=== PATIENT | female | born 1985 | race African-American/Black ===

== ENCOUNTER 2016-12-05 18:05 | Emergency (ER) | payer MEDICAID ==
[~2016-12-05] VITALS: Ht 167.6 cm; Wt 93.4 kg
[2016-12-05 18:10] VITALS: BP 149/88
--- NOTE | 2016-12-05 18:17 | ED.ADGEN ---
Past History Past Medical History: Anxiety Past Surgical History: Smoking: Non-smoker Adult General Chief Complaint Chief Complaint " I worried maybe .. I am ... and or a urinary tract infection.. just kar achy.. and fevers the last 10 days.." HPI HPI Patient is a 31 year old female who presents with above hx and complaints of fevers. Patient very concerned she may be . Patient has complaints of dysuria. Patient has complaints of dysfunctional uterine bleeding for the last couple months. She has complaints of intermittent tension headaches. No history of travel. No history of ill contacts. No history of immunosuppression.- Denies drug use. Patient normally follows with Dr. Cardona. Review of Systems Review of Systems Constitutional: Denies fever or chills [] Eyes: Denies change in visual acuity, redness, or eye pain [] HENT: Denies nasal congestion or sore throat [] Respiratory: Denies cough or shortness of breath [] Cardiovascular: No additional information not addressed in HPI [] GI: Denies abdominal pain, nausea, vomiting, bloody stools or diarrhea [] : Complaints of dysuria Musculoskeletal: Denies back pain or joint pain [] Integument: Denies rash or skin lesions [] Neurologic: Denies headache, focal weakness or sensory changes [] Endocrine: Denies polyuria or polydipsia [] Family History Family History Noncontributory Current Medications Current Medications Current Medications Medications (Trade) Dose Ordered Sig/Toro Start Time Stop Time Status Last Admin Dose Admin Trimethoprim/ Sulfamethoxazole (Bactrim Ds) 1 tab 1X ONCE 12/05/16 20:45 12/05/16 20:52 DC 12/05/16 20:45 1 TAB Allergies Allergies Allergies Coded Allergies Type Severity Reaction Last Updated Verified No Known Drug Allergies 08/20/13 No Physical Exam Physical Exam Constitutional: Mild distress, non-toxic appearance. [] HENT: Normocephalic, atraumatic, bilateral external ears normal, oropharynx moist, no oral exudates, nose normal. [] Eyes: PERRLA, EOMI, conjunctiva normal, no discharge. [] Neck: Normal range of motion, no tenderness, supple, no stridor. [] Cardiovascular:Heart rate regular rhythm, no murmur [] Lungs & Thorax: Bilateral breath sounds equal at apexes auscultation [] Abdomen: Bowel sounds normal, soft, no tenderness, no masses, no pulsatile masses. [] Patient declines rectal exam or pelvic exam at this time. No true rebound. Old surgery scar Skin: Warm, dry, no erythema, no rash. [] Back: No tenderness, no CVA tenderness. [] Extremities: No tenderness, no cyanosis, no clubbing, ROM intact, no edema. [] Neurologic: Alert and oriented X 3, normal motor function, normal sensory function, no focal deficits noted. No psoas or obturator sign Psychologic: Affect anxious, judgement normal, mood normal. [] Current Patient Data Vital Signs Vital Signs Date Time Temp Pulse Resp B/P Pulse Ox O2 Delivery O2 Flow Rate FiO2 12/05/16 18:10 98.5 110 16 98 Room Air Lab Results Laboratory Tests Test 12/05/16 19:00 Urine Collection Type Unknown Urine Color Yellow Urine Clarity Cloudy Urine pH 7.5 Urine Specific [place] 1.020 Urine Protein Neg (NEG-TRACE) Urine Glucose (UA) Negmg/dL (NEG) Urine Ketones (Stick) Negmg/dL (NEG) Urine Blood Trace (NEG) Urine Nitrite Pos (NEG) Urine Bilirubin Neg (NEG) Urine Urobilinogen Dipstick 0.2mg/dL (0.2 mg/dL) Urine Leukocyte Esterase Neg (NEG) Urine RBC Occ/HPF (0-2) Urine WBC 5-10/HPF (0-4) Urine Squamous Epithelial Cells Occ/LPF Urine Amorphous Sediment Present/HPF Urine Bacteria Mod/HPF (0-FEW) Urine Mucus Slight/LPF Influenza Type A (Rapid) Negative (NEGATIVE) Influenza Type B (Rapid) Negative (NEGATIVE) EKG EKG [] Radiology/Procedures Radiology/Procedures [] Course & Med Decision Making Course & Med Decision Making Pertinent Labs and Imaging studies reviewed. (See chart for details) Patient encouraged follow-up primary care. Patient encouraged to push fruit juices and vitamin C drinks. Patient take Bactrim DS 1 tablet twice a day for 7 days. Patient encouraged follow-up lab results. Patient return if any concerns. Patient may take Tylenol and ibuprofen for discomfort. [] Final Impression Final Impression 1. Myalgia[] 2. Dysuria- UTI 3. Hx of history of dysfunctional uterine bleeding. Problems: Dragon Disclaimer Dragon Disclaimer This electronic medical record was generated, in whole or in part, using a voice recognition dictation system. DUTCH RAE MD Dec 05, 2016 18:17
[2016-12-05 19:55] LABS: INFLUENZA A PATIENT NEGATIVE (NEGATIVE); INFLUENZA B PATIENT NEGATIVE (NEGATIVE)
[2016-12-05 20:08] LABS: AMORPHOUS SEDIMENT,UR PRESENT /HPF; BACTERIA,URINE MOD /HPF (0-FEW); BILIRUBIN,URINE NEG (NEG); CLARITY,URINE CLOUDY; COLOR,URINE YELLOW; GLUCOSE,URINE NEG (NEG); NITRITE,URINE POS (NEG); RBC,URINE OCC /HPF (0-2); SQUAMOUS EPITHELIAL CELL,UR OCC /LPF; UROBILINOGEN,URINE 0.2 mg/dL (0.2 mg/dL)
[2016-12-05] MEDS ORDERED: SMZ/TMP 800/160MG TABLET. PO ONE (20:45)
[2016-12-05] MEDS ORDERED: HYDR-79 PO (20:46)
[2016-12-05] MEDS ORDERED: SULF1TAB24 PO (20:46)
== END 2016-12-05 20:56 | disposition home or self-care (01) ==
LOC: ER 18:05
DX: N39.0 Urinary tract infection, site not specified (principal); M79.1 Myalgia; R51 Headache; R50.9 Fever, unspecified
CPT/HCPCS: 81001; 81025; 84703; 87804; 99284

== ENCOUNTER 2017-01-09 04:55 | Emergency (ER) | payer MEDICAID ==
[~2017-01-09 04:55] MED LIST: HYDR-79 PO; SULF1TAB24 PO
--- NOTE | 2017-01-09 04:58 | ED.ADGEN ---
Past History Past Medical History: No Pertinent History Past Surgical History: Smoking: Non-smoker Alcohol Use: Occasionally Drug Use: None Adult General Chief Complaint Chief Complaint ".. I was just siting at the desk at work.. and it seemed like my chest pressure was worse.. I ve had constant chest pressure for past two week.s... and this Lt. arm pain for 3 weeks. ... It just that it seems worse for the last two hours.... I am just worried since my sister had two heart attacks at 34..." But My sister did drink a lot.. and smoked too much before she had her two MT when she was 34....." HPI HPI Patient is a 31 year old female who presents with history of constant central chest pain for the past 2 weeks. Left Arm pain has been controlled or ache type pain has been constant the past 3 weeks. Patient does not smoke. Patient denies drug use. Patient denies prior health problems. Patient denies any trauma. Patient denies any travel. Patient denies any history of DVTs or pulmonary embolisms. Patient denies any use of control. Patient is exposed to sick individuals at the [place] residential housing. Patient does have a positive family history of coronary disease at age 34 with her sister who has a history of Raynaud's syndrome with heavy tobacco and alcohol use. Pt. has had increased family and social stressors recently and complaints of increased anxiety episodes. Review of Systems Review of Systems Constitutional: Denies fever or chills [] Eyes: Denies change in visual acuity, redness, or eye pain [] HENT: Denies nasal congestion or sore throat [] Respiratory: Denies cough , complains of shortness of breath and chest pressure Cardiovascular: No additional information not addressed in HPI [] GI: Denies abdominal pain, nausea, vomiting, bloody stools or diarrhea [] : Denies dysuria or hematuria [] Musculoskeletal: Denies back pain or joint pain []Lt arm pain Integument: Denies rash or skin lesions [] Neurologic: Denies headache, focal weakness or sensory changes [] Endocrine: Denies polyuria or polydipsia [] Family History Family History Early cardiac disease with her sister age 34 Current Medications Current Medications Current Medications Medications (Trade) Dose Ordered Sig/Toro Start Time Stop Time Status Last Admin Dose Admin Aspirin 324 mg 324 mg 1X ONCE 01/09/17 06:00 01/09/17 06:13 DC 01/09/17 06:28 324 MG Lactated Ringer's (Iv Lactated Ringers) 1,000 ml @ 1,000 mls/hr Q1H 01/09/17 06:00 01/09/17 07:22 DC 01/09/17 06:28 1,000 MLS/HR Lorazepam (Ativan) 1 mg 1X ONCE 01/09/17 06:15 01/09/17 06:16 DC 01/09/17 06:28 1 MG Allergies Allergies Allergies Coded Allergies Type Severity Reaction Last Updated Verified No Known Drug Allergies 08/20/13 No Physical Exam Physical Exam Constitutional: in acute emotional distress, non-toxic appearance, tearful. . [] HENT: Normocephalic, atraumatic, bilateral external ears normal, oropharynx moist, no oral exudates, nose normal. [] Eyes: PERRLA, EOMI, conjunctiva normal, no discharge. [] Neck: Normal range of motion, no tenderness, supple, no stridor. [] Cardiovascular:Heart rate regular rhythm, no murmur [] Lungs & Thorax: Bilateral breath sounds clear to auscultation [] Abdomen: Bowel sounds normal, soft, no tenderness, no masses, no pulsatile masses. [] Old surgical scar. Declines rectal exam at this time. Skin: Warm, dry, no erythema, no rash. [] Back: No tenderness, no CVA tenderness. [] Extremities: No tenderness, no cyanosis, no clubbing, ROM intact, no edema. No cording noted. Neurologic: Alert and oriented X 3, normal motor function, normal sensory function, no focal deficits noted. [] Psychologic: Affect very anxious, judgement normal, mood depressed. Current Patient Data Vital Signs Vital Signs Date Time Temp Pulse Resp B/P Pulse Ox O2 Delivery O2 Flow Rate FiO2 01/09/17 05:05 98.0 82 20 100 Room Air Lab Results Laboratory Tests Test 01/09/17 05:10 01/09/17 05:50 Urine Collection Type Unknown Urine Color Yellow Urine Clarity Clear Urine pH 6.0 Urine Specific [place] 1.020 Urine Protein Neg (NEG-TRACE) Urine Glucose (UA) Negmg/dL (NEG) Urine Ketones (Stick) Negmg/dL (NEG) Urine Blood Neg (NEG) Urine Nitrite Neg (NEG) Urine Bilirubin Neg (NEG) Urine Urobilinogen Dipstick 0.2mg/dL (0.2 mg/dL) Urine Leukocyte Esterase Neg (NEG) Urine RBC 3-5/HPF (0-2) Urine WBC 0/HPF (0-4) Urine Squamous Epithelial Cells Few/LPF Urine Bacteria 0/HPF (0-FEW) Urine Mucus Slight/LPF Urine Opiates Screen Neg (NEG) Urine Methadone Screen Neg (NEG) Urine Barbiturates Neg (NEG) Urine Phencyclidine Screen Neg (NEG) Urine Amphetamine/Methamphetamine Neg (NEG) Urine Benzodiazepines Screen Neg (NEG) Urine Cocaine Screen Neg (NEG) Urine Cannabinoids Screen Neg (NEG) Urine Ethyl Alcohol Neg (NEG) White Blood Count 8.1x10^3/uL (4.0-11.0) Red Blood Count 3.84x10^6/uL (3.50-5.40) Hemoglobin 11.6g/dL (12.0-15.5) L Hematocrit 35.4% (36.0-47.0) L Mean Corpuscular Volume 92fL (79-100) Mean Corpuscular Hemoglobin 30pg (25-35) Mean Corpuscular Hemoglobin Concent 33g/dL (31-37) Red Cell Distribution Width 14.3% (11.5-14.5) Platelet Count 331x10^3/uL (140-400) Neutrophils (%) (Auto) 55% (31-73) Lymphocytes (%) (Auto) 34% (24-48) Monocytes (%) (Auto) 8% (0-9) Eosinophils (%) (Auto) 2% (0-3) Basophils (%) (Auto) 2% (0-3) Neutrophils # (Auto) 4.5x10^3uL (1.8-7.7) Lymphocytes # (Auto) 2.7x10^3/uL (1.0-4.8) Monocytes # (Auto) 0.6x10^3/uL (0.0-1.1) Eosinophils # (Auto) 0.1x10^3/uL (0.0-0.7) Basophils # (Auto) 0.1x10^3/uL (0.0-0.2) Prothrombin Time 10.4SEC (9.4-11.4) Prothrombin Time INR 1.0 (0.9-1.1) PTT 26SEC (23-33) D-Dimer (Nola) 0.22mg/L (0.00-0.50) POC Urine HCG, Qualitative hcg negative (Negative) Sodium Level 138mmol/L (136-145) Potassium Level 3.9mmol/L (3.5-5.1) Chloride Level 103mmol/L (98-107) Carbon Dioxide Level 27mmol/L (21-32) Anion Gap 8 (6-14) Blood Urea Nitrogen 9mg/dL (7-20) Creatinine 1.0mg/dL (0.6-1.0) Estimated GFR (Cockcroft-Gault) 79.3 Glucose Level 99mg/dL (70-99) Calcium Level 8.9mg/dL (8.5-10.1) Magnesium Level 1.8mg/dL (1.8-2.4) Total Bilirubin 0.3mg/dL (0.2-1.0) Direct Bilirubin 0.1mg/dL (0.0-0.2) Aspartate Amino Transferase (AST) 12U/L (15-37) L Alanine Aminotransferase (ALT) 19U/L (14-59) Alkaline Phosphatase 65U/L (46-116) Creatine Kinase 151U/L (26-192) Creatine Kinase MB (Mass) 0.9ng/mL (0.0-3.6) Creatine Kinase MB Relative Index 0.6% (0-4) Troponin I Quantitative < 0.017ng/mL (0-0.055) RC-[id number]-Type Natriuretic Peptide 11pg/mL (0-124) Total Protein 7.9g/dL (6.4-8.2) Albumin 3.6g/dL (3.4-5.0) Lipase 98U/L (73-393) EKG EKG My interpretation EKG shows a sinus rhythm at 63 bpm. No findings acute STEMI . Essentially normal EKG [] Radiology/Procedures Radiology/Procedures My interpretation of chest x-ray shows no acute cardiopulmonary findings. Does have findings of mild scoliosis .[] Course & Med Decision Making Course & Med Decision Making Pertinent Labs and Imaging studies reviewed. (See chart for details). Discussed presentation, testing and tx. plan with Pt. She wished to be discharged. Must follow up with primary. Take a daily ASA. Return if any concerns. [] Final Impression Final Impression 1. Chest discomfort 2. Anxiety []- 3. Anemia Problems: Dragon Disclaimer Dragon Disclaimer This electronic medical record was generated, in whole or in part, using a voice recognition dictation system. DUTCH RAE MD Jan 09, 2017 04:58
[2017-01-09 05:05] VITALS: BP 130/95
[2017-01-09] MEDS ORDERED: ASPIRIN 81 MG TAB.CHEW PO ONE (06:00)
[2017-01-09] MEDS ORDERED: IV RINGERS SOLUTION,LACTATED 1,000 ML IV SCH (06:00)
[2017-01-09 06:12] LABS: BASO # 0.1 x10^3/uL (0.0-0.2); BASO % 2 % (0-3); EOS # 0.1 x10^3/uL (0.0-0.7); EOS % 2 % (0-3); HEMATOCRIT 35.4 % (36.0-47.0); HEMOGLOBIN 11.6 g/dL (12.0-15.5); LYMPH # 2.7 x10^3/uL (1.0-4.8); LYMPH % 34 % (24-48); MEAN CORPUSCULAR HEMOGLOBIN 30 pg (25-35); MEAN CORPUSCULAR HGB CONC 33 g/dL (31-37); MEAN CORPUSCULAR VOLUME 92 fL (79-100); MONO # 0.6 x10^3/uL (0.0-1.1); MONO % 8 % (0-9); NEUT # 4.5 x10^3uL (1.8-7.7); NEUT % 55 % (31-73); PLATELET COUNT 331 x10^3/uL (140-400); RED BLOOD COUNT 3.84 x10^6/uL (3.50-5.40); RED CELL DISTRIBUTION WIDTH 14.3 % (11.5-14.5); WHITE BLOOD COUNT 8.1 x10^3/uL (4.0-11.0)
[2017-01-09 06:13] LABS: BARBITURATES NEG (NEG); BENZODIAZEPINES NEG (NEG); CANNABINOIDS NEG (NEG); COCAINE NEG (NEG); METHADONE NEG (NEG); OPIATES NEG (NEG); PHENCYCLIDINE NEG (NEG)
[2017-01-09 06:14] LABS: AMPHETAMINE/METHAMPHETAMINE NEG (NEG)
[2017-01-09] MEDS ORDERED: LORAZEPAM 1 MG TABLET. PO ONE (06:15)
[2017-01-09 06:18] LABS: BACTERIA,URINE 0 /HPF (0-FEW); BILIRUBIN,URINE NEG (NEG); CLARITY,URINE CLEAR; COLOR,URINE YELLOW; GLUCOSE,URINE NEG (NEG); NITRITE,URINE NEG (NEG); SQUAMOUS EPITHELIAL CELL,UR FEW /LPF; UROBILINOGEN,URINE 0.2 mg/dL (0.2 mg/dL); WBC,URINE 0 /HPF (0-4)
--- NOTE | 2017-01-09 06:26 | EKG ---
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
[2017-01-09 06:31] LABS: ALBUMIN 3.6 g/dL (3.4-5.0); CALCIUM 8.9 mg/dL (8.5-10.1); DIRECT BILIRUBIN 0.1 mg/dL (0.0-0.2); GFR 79.3; MAGNESIUM 1.8 mg/dL (1.8-2.4); POTASSIUM 3.9 mmol/L (3.5-5.1); TOTAL BILIRUBIN 0.3 mg/dL (0.2-1.0); TOTAL PROTEIN 7.9 g/dL (6.4-8.2)
--- NOTE | 2017-01-09 08:10 | RAD ---
PA and lateral chest radiographs 01/09/2017. Clinical History: Chest pain which raise down the left arm.. PA and lateral digital radiographs of the chest were obtained. Comparison study is dated 07/12/2013. The cardiac and mediastinal silhouettes are within normal limits in size and configuration. No pulmonary infiltrate is seen. No pleural effusion or pneumothorax is noted. Mild to moderate S-shaped curvature of the thoracolumbar spine is noted. Impression: No radiographic evidence of active cardiopulmonary disease.
== END 2017-01-09 07:20 | disposition home or self-care (01) ==
LOC: ER 04:55
DX: R07.89 Other chest pain (principal); M79.602 Pain in left arm; F41.9 Anxiety disorder, unspecified; D64.9 Anemia, unspecified
CPT/HCPCS: 36415; 71020; 80048; 80076; 80305; 81001; 82553; 83690; 83735; 83880; 84443; 84484; 84703; 85027; 85379; 85610; 85730; 93005; 96360; 99285; J7120; 81025; G0481

== ENCOUNTER 2019-07-06 00:04 | Inpatient (IN) | payer MEDICAID, OTHER ==
[~2019-07-06] VITALS: Ht 167.6 cm; Wt 100.9 kg
[~2019-07-06 00:04] MED LIST changes: +HYDR-1179 PO; -HYDR-79 PO
[2019-07-06] MEDS ORDERED: IV NORMAL SALINE 1,000ML 1,000 ML IV ONE (00:30)
[2019-07-06] MEDS ORDERED: FAMOTIDINE 20 MG/2 ML VIAL IVP ONE (00:30)
[2019-07-06] MEDS ORDERED: KETOROLAC 15 MG/ML VIAL. IVP ONE (00:30)
[2019-07-06 01:04] LABS: BASO # 0.1 x10^3/uL (0.0-0.2); BASO % 1 % (0-3); EOS # 0.2 x10^3/uL (0.0-0.7); EOS % 3 % (0-3); HEMATOCRIT 35.3 % (36.0-47.0); HEMOGLOBIN 11.9 g/dL (12.0-15.5); LYMPH # 2.8 x10^3/uL (1.0-4.8); LYMPH % 35 % (24-48); MEAN CORPUSCULAR HEMOGLOBIN 33 pg (25-35); MEAN CORPUSCULAR HGB CONC 34 g/dL (31-37); MEAN CORPUSCULAR VOLUME 96 fL (79-100); MONO # 0.6 x10^3/uL (0.0-1.1); MONO % 7 % (0-9); NEUT # 4.4 x10^3uL (1.8-7.7); NEUT % 54 % (31-73); PLATELET COUNT 284 x10^3/uL (140-400); RED BLOOD COUNT 3.67 x10^6/uL (3.50-5.40); RED CELL DISTRIBUTION WIDTH 12.7 % (11.5-14.5); WHITE BLOOD COUNT 8.2 x10^3/uL (4.0-11.0)
[2019-07-06 01:13] LABS: BILIRUBIN,URINE NEG (NEG); CLARITY,URINE HAZY; COLOR,URINE YELLOW; GLUCOSE,URINE NEG (NEG)
[2019-07-06 01:14] LABS: BACTERIA,URINE MANY /HPF (0-FEW); NITRITE,URINE NEG (NEG); RBC,URINE OCC /HPF (0-2); SQUAMOUS EPITHELIAL CELL,UR FEW /LPF; UROBILINOGEN,URINE 0.2 mg/dL (0.2 mg/dL)
[2019-07-06 01:19] LABS: ALBUMIN 3.7 g/dL (3.4-5.0); ALBUMIN/GLOBULIN RATIO 0.9 (1.0-1.7); CALCIUM 8.7 mg/dL (8.5-10.1); CREATININE 0.9 mg/dL (0.6-1.0); GFR 87.8; MAGNESIUM 1.8 mg/dL (1.8-2.4); POTASSIUM 3.9 mmol/L (3.5-5.1); TOTAL BILIRUBIN 0.2 mg/dL (0.2-1.0); TOTAL PROTEIN 7.9 g/dL (6.4-8.2)
--- NOTE | 2019-07-06 01:53 | EKG ---
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
[2019-07-06] MEDS ORDERED: CONTRAST GIVEN MC PRN (02:15)
[2019-07-06] MEDS ORDERED: IOHEXOL 350 MG/ML 100 ML VIAL. IV ONE (02:15)
--- NOTE | 2019-07-06 02:42 | PHYS DOC ---
Past History Past Medical History: No Pertinent History Past Surgical History: Smoking: Non-smoker Alcohol Use: None Drug Use: None Adult General Chief Complaint Chief Complaint: ABDOMINAL PAIN HPI HPI 34-year-old female presents with 3 day history of left lower chest discomfort which is worse with deep inspiration. Reports radiation to left shoulder. Patient denies pain with range of motion or palpation. Denies trauma. Denies leg swelling or calf tenderness. Denies history or family history of DVT/PE. Denies cardiac risk factors. Review of Systems Review of Systems Constitutional: Denies fever or chills Eyes: Denies redness or eye pain HENT: Denies nasal congestion or sore throat Respiratory: Denies cough; reports shortness of breath Cardiovascular: Reports pleuritic chest pain; denies palpitations GI: Denies abdominal pain, nausea, or vomiting : Denies dysuria or hematuria Musculoskeletal: Denies back pain or joint pain Integument: Denies rash or skin lesions Neurologic: Denies headache, focal weakness or sensory changes Complete systems were reviewed and found to be within normal limits, except as documented in this note. Current Medications Current Medications Current Medications Medications (Trade) Dose Ordered Sig/Toro Start Time Stop Time Status Last Admin Dose Admin Famotidine (Pepcid Vial) 20 mg 1X ONCE 07/06/19 00:30 07/06/19 00:31 DC 07/06/19 01:01 20 MG Info (Do NOT chart on this entry -- for MONITORING) 1 each PRN DAILY PRN 07/06/19 02:15 07/08/19 02:14 Iohexol (Omnipaque 350 Mg/ml) 100 ml 1X ONCE 07/06/19 02:15 07/06/19 02:16 DC 07/06/19 02:21 100 ML Ketorolac Tromethamine (Toradol 15mg Vial) 15 mg 1X ONCE 07/06/19 00:30 07/06/19 00:31 DC 07/06/19 01:01 15 MG Sodium Chloride 1,000 ml @ 1,000 mls/hr 1X ONCE 07/06/19 00:30 07/06/19 01:29 DC 07/06/19 01:01 1,000 MLS/HR Allergies Allergies Allergies Coded Allergies Type Severity Reaction Last Updated Verified No Known Drug Allergies 08/20/13 No Physical Exam Physical Exam Constitutional: Well developed, well nourished, no acute distress, non-toxic appearance HENT: Normocephalic, atraumatic, oropharynx moist Eyes: Conjunctiva normal, no discharge Neck: Normal range of motion, no tenderness, supple Cardiovascular: Heart rate normal, regular rhythm Lungs & Thorax: Bilateral breath sounds clear to auscultation, no wheezing/rales/rhonchi Abdomen: Soft, no tenderness Skin: Warm, dry, no erythema, no rash Back: No tenderness, no CVA tenderness Extremities: No tenderness, ROM intact, no edema Neurologic: Alert and oriented X 3, no focal deficits noted Psychologic: Affect normal, judgement normal Current Patient Data Vital Signs Vital Signs Date Time Temp Pulse Resp B/P (MAP) Pulse Ox O2 Delivery O2 Flow Rate FiO2 07/06/19 00:08 98.3 88 18 100 Room Air Lab Results Laboratory Tests Test 07/06/19 00:10 07/06/19 00:33 07/06/19 00:45 07/06/19 01:00 Urine Collection Type Unknown Urine Color Yellow Urine Clarity Hazy Urine pH 6.0 Urine Specific [place] 1.020 Urine Protein Neg (NEG-TRACE) Urine Glucose (UA) Neg mg/dL (NEG) Urine Ketones (Stick) Neg mg/dL (NEG) Urine Blood Trace (NEG) Urine Nitrite Neg (NEG) Urine Bilirubin Neg (NEG) Urine Urobilinogen Dipstick 0.2 mg/dL (0.2 mg/dL) Urine Leukocyte Esterase Neg (NEG) Urine RBC Occ /HPF (0-2) Urine WBC 5-10 /HPF (0-4) Urine Squamous Epithelial Cells Few /LPF Urine Bacteria Many /HPF (0-FEW) Urine Mucus Slight /LPF POC Urine HCG, Qualitative hcg negative (Negative) White Blood Count 8.2 x10^3/uL (4.0-11.0) Red Blood Count 3.67 x10^6/uL (3.50-5.40) Hemoglobin 11.9 g/dL (12.0-15.5) L Hematocrit 35.3 % (36.0-47.0) L Mean Corpuscular Volume 96 fL (79-100) Mean Corpuscular Hemoglobin 33 pg (25-35) Mean Corpuscular Hemoglobin Concent 34 g/dL (31-37) Red Cell Distribution Width 12.7 % (11.5-14.5) Platelet Count 284 x10^3/uL (140-400) Neutrophils (%) (Auto) 54 % (31-73) Lymphocytes (%) (Auto) 35 % (24-48) Monocytes (%) (Auto) 7 % (0-9) Eosinophils (%) (Auto) 3 % (0-3) Basophils (%) (Auto) 1 % (0-3) Neutrophils # (Auto) 4.4 x10^3uL (1.8-7.7) Lymphocytes # (Auto) 2.8 x10^3/uL (1.0-4.8) Monocytes # (Auto) 0.6 x10^3/uL (0.0-1.1) Eosinophils # (Auto) 0.2 x10^3/uL (0.0-0.7) Basophils # (Auto) 0.1 x10^3/uL (0.0-0.2) Prothrombin Time 9.9 SEC (9.4-11.4) Prothrombin Time INR 1.0 (0.9-1.1) Activated Partial Thromboplast Time 28 SEC (23-33) Sodium Level 137 mmol/L (136-145) Potassium Level 3.9 mmol/L (3.5-5.1) Chloride Level 101 mmol/L (98-107) Carbon Dioxide Level 27 mmol/L (21-32) Anion Gap 9 (6-14) Blood Urea Nitrogen 7 mg/dL (7-20) Creatinine 0.9 mg/dL (0.6-1.0) Estimated GFR (Cockcroft-Gault) 87.8 BUN/Creatinine Ratio 8 (6-20) Glucose Level 94 mg/dL (70-99) Calcium Level 8.7 mg/dL (8.5-10.1) Magnesium Level 1.8 mg/dL (1.8-2.4) Total Bilirubin 0.2 mg/dL (0.2-1.0) Aspartate Amino Transferase (AST) 15 U/L (15-37) Alanine Aminotransferase (ALT) 20 U/L (14-59) Alkaline Phosphatase 72 U/L (46-116) Total Protein 7.9 g/dL (6.4-8.2) Albumin 3.7 g/dL (3.4-5.0) Albumin/Globulin Ratio 0.9 (1.0-1.7) L Lipase 114 U/L (73-393) D-Dimer (Nola) 0.82 mg/L (0.00-0.50) H EKG EKG @0052 NSR at 75bpm, NO ST elevation, QRS 76ms, QT/QTc 368/413ms Radiology/Procedures Radiology/Procedures PROCEDURE: CT ANGIOGRAPHY CHEST CT angiogram of the chest with contrast: Reason for examination: Pleuritic pain with elevated d-dimer. Helical images were obtained through the chest with intravenous administration 100 cc Omnipaque 350 using PE protocol. 3-D MIPS reconstruction was performed in sagittal and coronal planes. Exposure: One or more of the following individualized dose reduction techniques were utilized for this examination: 1. Automated exposure control 2. Adjustment of the mA and/or kV according to patient size 3. Use of iterative reconstruction technique. No abnormality seen at the thyroid gland. The trachea and mainstem bronchi show no intraluminal lesions. No abnormality seen at the esophagus. The thoracic aorta shows no aneurysmal dilatation or dissection. The heart size is normal with no pericardial effusion. No significant adenopathy seen in the mediastinum or alisha. There appear to be filling defects consistent pulmonary embolus in branches of the pulmonary arteries in the left lower lobe. Lung kerr are clear with no infiltrates or pleural effusions. No focal abnormalities are seen at the liver, spleen, adrenal glands, pancreas or gallbladder. No acute bony abnormalities are evident. IMPRESSION: Pulmonary emboli in pulmonary arteries in the left lower lobe. Electronically signed by: Gertrude Turpin MD (07/06/2019 3:12 AM) [facility] Course & Med Decision Making Course & Med Decision Making Pertinent Labs and Imaging studies reviewed. (See chart for details) Patient presents with report of pleuritic chest pain. Low risk factors for PE or CAD. EKG stable. Labs obtained and posted to chart. Initial troponin within normal limits. LFTs and lipase also within normal limits. D-dimer elevated. CTA chest obtained with findings consistent for left sided acute PE. Lovenox provided. Venous Dopplers of bilateral lower extremities ordered for a.m. UA appears contaminated. Patient requiring admission for further evaluation and treatment. Discussed with Dr. Arzate (hospitalist) who is in agreement with admission. Discussed findings and plan with patient and family, who acknowledge understanding and agreement. Dragon Disclaimer Dragon Disclaimer This electronic medical record was generated, in whole or in part, using a voice recognition dictation system. Departure Departure: Impression: Primary Impression: Acute pulmonary embolism Disposition: ADMITTED INPATIENT Admitting Physician: Lei Arzate Condition: GUARDED Referrals: PCP,NO (PCP) Critical Care Time Critical care time was 30 minutes which includes time at bedside, spent in discussion of patient's care with specialists and/or family members, with interpretation of laboratory and/or radiological studies and is exclusive of procedures. HEART Score for Chest Pain PTs The HEART Score for CP Pts HEART Score for Chest Pain: HEART Score for Chest Pain Response (Comments) Value History Slighlty/Non-Suspicious 0 ECG Normal 0 Age < 45 0 Risk Factors No Risk Factors 0 Troponin < Normal Limit 0 Total 0 Risk Factors: Risk Factors: DM, Current or recent (<one month) smoker, HTN, HLP, family his tory of CAD, obesity. Risk Scores: Score 0 - 3: 2.5% MACE over next 6 weeks - Discharge Home Score 4 - 6: 20.3% MACE over next 6 weeks - Admit for Clinical Observation Score 7 - 10: 72.7% MACE over next 6 weeks - Early Invasive Strategies Problem Qualifiers Primary Impression: Acute pulmonary embolism Pulmonary embolism type: unspecified Acute cor pulmonale presence: without acute cor pulmonale Qualified Codes: I26.99 - Other pulmonary embolism without acute cor pulmonale YASMEEN GARCIA DO Jul 06, 2019 02:42
--- NOTE | 2019-07-06 03:15 | RAD ---
CT angiogram of the chest with contrast: Reason for examination: Pleuritic pain with elevated d-dimer. Helical images were obtained through the chest with intravenous administration 100 cc Omnipaque 350 using PE protocol. 3-D MIPS reconstruction was performed in sagittal and coronal planes. Exposure: One or more of the following individualized dose reduction techniques were utilized for this examination: 1. Automated exposure control 2. Adjustment of the mA and/or kV according to patient size 3. Use of iterative reconstruction technique. No abnormality seen at the thyroid gland. The trachea and mainstem bronchi show no intraluminal lesions. No abnormality seen at the esophagus. The thoracic aorta shows no aneurysmal dilatation or dissection. The heart size is normal with no pericardial effusion. No significant adenopathy seen in the mediastinum or alisha. There appear to be filling defects consistent pulmonary embolus in branches of the pulmonary arteries in the left lower lobe. Lung kerr are clear with no infiltrates or pleural effusions. No focal abnormalities are seen at the liver, spleen, adrenal glands, pancreas or gallbladder. No acute bony abnormalities are evident. IMPRESSION: Pulmonary emboli in pulmonary arteries in the left lower lobe. Electronically signed by: Gertrude Turpin MD (07/06/2019 3:12 AM) [facility] [place]
[2019-07-06] MEDS ORDERED: ONDANSETRON PF 4 MG/2 ML VIAL. IV PRN (03:45)
[2019-07-06] MEDS ORDERED: ENOXAPARIN ** NOTE DOSE ** SYRINGE SQ ONE (03:45)
[2019-07-06 04:46] VITALS: BP 119/82
[2019-07-06] MEDS ORDERED: HYDROcodone/APAP 5/325MG 1 TAB TABLET PO PRN (05:30)
--- NOTE | 2019-07-06 09:09 | RAD ---
Examination: VENOUS LOWER EXT BILATERAL History: Acute pulmonary arterial thromboembolic disease Comparison/Correlation: None FINDINGS: Bilateral lower extremity duplex venous ultrasound exam was performed. Grayscale, color Doppler, and spectral Doppler imaging was performed. Compression and augmentation was performed. The right common femoral vein, superficial femoral vein, popliteal vein, and greater saphenous vein are normal with no evidence of deep venous thrombus. Normal compressibility and augmentation is evident. The left common femoral vein, superficial femoral vein, popliteal vein, and greater saphenous vein are normal with no evidence of deep venous thrombus. Normal compressibility and augmentation is evident. Bilateral visualized calf veins are unremarkable. IMPRESSION: Normal bilateral lower extremity duplex ultrasound exam. No evidence of deep venous thrombus involving the lower extremities. Electronically signed by: Garcia Lara MD (07/06/2019 9:06 AM) [facility]
[2019-07-06] MEDS ORDERED: ACETAMINOPHEN 325 MG TABLET PO PRN (10:30)
[2019-07-06 10:32] VITALS: BP 113/68
[2019-07-06] MEDS ORDERED: APIX5TAB3 PO (12:16)
--- NOTE | 2019-07-06 12:20 | HP ---
ADMIT DATE: 07/06/2019 HISTORY OF PRESENT ILLNESS: The patient is a 34-year-old -Mosotho female patient who came to the Emergency Room with complaint of left-sided chest pain, which is worse on deep inspiration and the pain radiates to her left shoulder and pain is aggravated by taking a deep breath, but denied any association with movement or palpation. Denied any recent trauma. Denied any leg swelling or calf tenderness. Denied any cough, phlegm or hemoptysis. She was extensively investigated in the Emergency Room and her lab work showed that her D-dimer was slightly elevated at 0.[address] angio of the chest, which basically showed that the patient has no abnormality is seen of the thyroid gland. The trachea and main stem bronchi show no intraabdominal lesions, no abnormality seen at the esophagus. The thoracic aorta shows no aneurysmal dilatation or dissection. The heart size is normal with no pericardial effusion, no significant adenopathy seen in the mediastinum. There appears to be filling defects consistent with pulmonary embolus. The branches of pulmonary arteries in the left lower lobe lung kerr are clear with no infiltrate or pleural effusion. No focal abnormalities are seen in the liver, spleen, adrenal glands, pancreas and/or gallbladder. No acute bony abnormalities are evident. IMPRESSION: The patient has pulmonary emboli and pulmonary arteries in her left lower lobe. She was treated with Lovenox at 100 mg subcutaneously twice a day and was continued on other pain medication. She also has had venous Doppler ultrasound, which showed that the patient has normal bilateral lower extremity Doppler ultrasound exam. No evidence of deep vein thrombosis involving the lower extremities. PAST MEDICAL HISTORY: Essentially unremarkable. PAST SURGICAL HISTORY: Significant for 3 C-sections. She has Mirena intrauterine device that was placed about 2 years ago and apparently it stays there for almost 5 years and she has not had any other surgical procedure. ALLERGIES: She is allergic to SHRIMPS. MEDICATIONS: She is not currently on any medication. FAMILY HISTORY: The patient has 2 sisters, 1 older, has had her 2 myocardial infarctions at the age of 34 and currently she is 39. She has stents deployed. The other sister is healthy. Her father is alive at age of 61, has hypertension and chronic kidney disease. Mother is alive at age of 57 and apparently healthy. SOCIAL HISTORY: She is , has 3 sons. She has never smoked, does not drink alcohol or use any recreational drugs. 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 REVIEW OF SYSTEMS: The patient denied any blurring of vision, cataract, glaucoma or macular degeneration. Denied any earache, tinnitus or sensorineural deafness. Denied any nosebleeds, stuffy nose or postnasal drip. Denied any sore throat, sore tongue, toothache, hoarseness of voice or difficulty swallowing. Denied any nausea, vomiting, diarrhea or constipation. Denied any hematemesis, melena or hematochezia. Denied any dysuria, frequency or hematuria. Did complain of left-sided pleuritic chest pain, aggravated by taking a deep breath and radiating to left shoulder. Denied any cough, phlegm or hemoptysis. Denied any dizziness, lightheadedness or vertigo. PHYSICAL EXAMINATION: GENERAL: When I examined her, she looked well and was clearly in no apparent respiratory distress. No pallor, jaundice, cyanosis or thyromegaly. No jugular venous distension. No limb edema. VITAL SIGNS: Her heart rate was 88, blood pressure 119/82, temperature was 98.1, respiratory rate was 20 and oxygen saturation was 100% on room air. HEAD, EYES, EARS NOSE AND THROAT: Showed normocephalic, atraumatic. NECK: Supple. HEART: Showed normal first and second heart sounds. No gallop, rub or murmur. CHEST: Clear to auscultation. No crepitation or rhonchi. ABDOMEN: Distended, soft, nontender. NEUROLOGIC: She is awake, alert, responding appropriately. All cranial nerves intact. EXTREMITIES: She moves extremities without difficulty. She ambulates without assistance or assistive devices. LABORATORY DATA: Her lab work on admission showed a white cell count of 8200, hemoglobin 12, hematocrit 35, MCV 96 and platelet count 285,000. Her chemistry showed a serum sodium 137, potassium 3.9, chloride 101, bicarbonate 27, anion gap of 9, BUN 7, creatinine 0.9, estimated GFR was 80 mL per minute. Her glucose was 94, calcium was 8.7, magnesium was 1.8. Total bilirubin, AST, ALT, alkaline phosphatase were normal. Total protein was 7.9, albumin was 3.7, lipase was 114. Her prothrombin time, INR and aPTT were normal. D-dimer was 0.82. Urinalysis was essentially unremarkable and urine test was negative. CT scan of the chest showed that she has filling defects consistent with pulmonary embolus and branches of pulmonary arteries in the left lower lobe. ASSESSMENT AND PLAN: The patient was treated with Lovenox 100 mg. I will switch her on to Eliquis 10 mg twice a day for 7 days and then 5 mg thereafter for at least 6 months. Her Mirena needs to be discontinued and she might have to look for other methods of contraception, possibly tubal ligation. DIRK MARISCAL MD DR: LILY/charlotte JOB#: [id number] / [id number]
[2019-07-06] MEDS ORDERED: ENOXAPARIN ** NOTE DOSE ** SYRINGE SQ SCH (18:00)
--- NOTE | 2019-07-06 22:25 | DS ---
DATE OF DISCHARGE: HOSPITAL COURSE: The patient is a 34-year-old -Yemeni female patient who was admitted with left-sided chest pain that is pleuritic in nature, radiating to the left shoulder and was investigated. In the Emergency Room, she was found to have pulmonary emboli in her left lower lobe pulmonary artery and was started on Lovenox. Doppler ultrasound of both lower extremities were negative; however, she is on Mirena, which showed an intrauterine device radiating hormone and one of the side effects is thrombosis and embolism and the patient was treated with Lovenox, and was discharged to continue on Eliquis 10 mg twice a day for 7 days and then 5 mg daily for 6 months. I also recommended that she should have the Mirena removed and should look for another form of control, probably by tubal ligation and after 6 months, she should probably contact her toddler lead teacher to investigate her that she might have inherited form of ____ thrombi like factor V Leiden or protein S, protein C or antithrombin 3 deficiency, although she does not have any family history. When I saw her this afternoon, she was hemodynamically stable, afebrile, and her oxygen saturation was 100% on room air. The rest of clinical exam was stable. She was discharged home to continue on Eliquis 10 mg twice a day for 7 days and then 5 mg twice a day for the rest of the 6 months. DIRK MARISCAL MD DR: LILY/charlotte JOB#: [id number] / [id number]
== END 2019-07-06 13:10 | disposition home or self-care (01) | DRG 176 ==
LOC: ER 00:04 → 1 SOUTH 03:39
PROVIDERS: ADMIT Internal Medicine; ATTEND Internal Medicine
DX: I26.99 Other pulmonary embolism without acute cor pulmonale (principal); Z79.01 Long term (current) use of anticoagulants; R07.89 Other chest pain; Z98.891 History of uterine scar from previous surgery
CPT/HCPCS: 36415; 71275; 80053; 81001; 81025; 83690; 83735; 84484; 85025; 85379; 85610; 85730; 87086; 93005; 93970; 96361; 96372; 96374; 96375; J1650; J1885; J3490; Q9967; 99291-25; J7030

== ENCOUNTER 2019-07-20 16:09 | Emergency (ER) | payer OTHER ==
[~2019-07-20] VITALS: Ht 167.6 cm; Wt 100.7 kg
[~2019-07-20 16:09] MED LIST changes: +APIX5TAB3 PO
[2019-07-20] MEDS ORDERED: METOCLOPRAMIDE 10 MG TABLET PO ONE (16:30)
[2019-07-20] MEDS ORDERED: CONTRAST GIVEN MC PRN (16:45)
[2019-07-20] MEDS ORDERED: diphenhydrAMINE 50 MG/ML VIAL IVP ONE (16:45)
[2019-07-20] MEDS ORDERED: PROCHLORPERAZINE 10 MG/2 ML VIAL. IV ONE (16:45)
[2019-07-20] MEDS ORDERED: methylPREDNISolone SOD SUCC PF 125 MG/2 ML VIAL. IV ONE (16:45)
[2019-07-20] MEDS ORDERED: IOHEXOL 350 MG/ML 100 ML VIAL. IV ONE (16:45)
--- NOTE | 2019-07-20 17:03 | RAD ---
Exam: CT head INDICATION: Headache TECHNIQUE: Sequential axial images through the head were obtained without the administration of IV contrast. Comparisons: None FINDINGS: No focal parenchymal lesion or hemorrhage is identified. There is no midline shift or sulcal effacement. No acute vascular territory infarction is identified. Herbert-white distinction is preserved. The ventricular system is within normal limits without compression hydrocephalus. The basal cisterns are well maintained. The visualized portions of the paranasal sinuses and mastoid air cells are well-pneumatized. No acute fractures. IMPRESSION: No acute intracranial abnormality. Exposure: One or more of the following in the visualized dose reduction techniques were utilized for this examination: 1. Automated exposure control 2. Adjustment of the MA and/or KV according to patient size 3. Use of iterative of reconstructive technique FOR INTERNAL CODING PURPOSES Critical result: Findings discussed with CLAUDIA MCDONALD at 07/20/2019 5:00 PM. RESULT CODE: (C) Electronically signed by: Simone Martinez MD (07/20/2019 5:00 PM) [facility]
[2019-07-20 17:05] LABS: BASO # 0.1 x10^3/uL (0.0-0.2); BASO % 1 % (0-3); EOS # 0.1 x10^3/uL (0.0-0.7); EOS % 1 % (0-3); HEMATOCRIT 30.8 % (36.0-47.0); HEMOGLOBIN 10.2 g/dL (12.0-15.5); LYMPH # 3.8 x10^3/uL (1.0-4.8); LYMPH % 36 % (24-48); MEAN CORPUSCULAR HEMOGLOBIN 32 pg (25-35); MEAN CORPUSCULAR HGB CONC 33 g/dL (31-37); MEAN CORPUSCULAR VOLUME 96 fL (79-100); MONO # 0.9 x10^3/uL (0.0-1.1); MONO % 9 % (0-9); NEUT # 5.6 x10^3uL (1.8-7.7); NEUT % 53 % (31-73); PLATELET COUNT 366 x10^3/uL (140-400); RED BLOOD COUNT 3.21 x10^6/uL (3.50-5.40); RED CELL DISTRIBUTION WIDTH 12.8 % (11.5-14.5); WHITE BLOOD COUNT 10.5 x10^3/uL (4.0-11.0)
[2019-07-20 17:10] LABS: PREG TEST PT QUAL NEGATIVE (NEG)
[2019-07-20 17:16] LABS: ALBUMIN 3.8 g/dL (3.4-5.0); ALBUMIN/GLOBULIN RATIO 0.9 (1.0-1.7); C REACTIVE PROTEIN 1.6 mg/L (0-3.3); CALCIUM 9.1 mg/dL (8.5-10.1); CREATININE 0.8 mg/dL (0.6-1.0); GFR 100.6; POTASSIUM 3.6 mmol/L (3.5-5.1); TOTAL BILIRUBIN 0.2 mg/dL (0.2-1.0); TOTAL PROTEIN 7.9 g/dL (6.4-8.2)
--- NOTE | 2019-07-20 17:18 | RAD ---
Exam: CTA head and neck INDICATION: Headache TECHNIQUE: Sequential axial images through the head and neck obtained following the administration of 75 mL of Isovue-370 IV contrast. Sagittal and coronal reformatted images were reconstructed from the axial data and reviewed. Comparisons: CT head same day FINDINGS: CTA NECK: Visualized portions of the thoracic aorta are unremarkable. There are standard three-vessel aortic arch anatomy. Right common carotid artery is patent without evidence of stenosis, occlusion or aneurysm. Cervical segment of the right internal carotid artery is patent without evidence of stenosis, occlusion or aneurysm. Left common carotid artery is patent without evidence of stenosis, occlusion or aneurysm. Cervical segment of the left internal carotid artery is patent without evidence of stenosis, occlusion or aneurysm. Right vertebral artery is patent to the basilar confluence without evidence of stenosis, occlusion or aneurysm. Left vertebral artery is patent basilar confluence without evidence of stenosis, occlusion or aneurysm. Visualized soft tissues are unremarkable. CTA HEAD: Intracranial segments of the right internal carotid artery are patent without evidence of stenosis, occlusion or aneurysm. Right MCA is patent. Right DOTTIE is patent. Intracranial segments of the left internal carotid artery are patent without evidence of stenosis, occlusion or aneurysm. Left MCA is patent. Left DOTTIE is patent. Basilar artery is patent without evidence of stenosis, occlusion or aneurysm. mechanics handyman are patent bilaterally. IMPRESSION: 1. No large vessel occlusion. 2. Patent intracranial and cervical vasculature without evidence of stenosis, occlusion or aneurysm. Exposure: One or more of the following in the visualized dose reduction techniques were utilized for this examination: 1. Automated exposure control 2. Adjustment of the MA and/or KV according to patient size 3. Use of iterative of reconstructive technique FOR INTERNAL CODING PURPOSES Critical result: Findings discussed with CLAUDIA MCDONALD at 07/20/2019 5:14 PM. RESULT CODE: (C) Electronically signed by: Simone Martinez MD (07/20/2019 5:15 PM) [facility]
[2019-07-20 17:42] LABS: BARBITURATES NEG (NEG); BENZODIAZEPINES NEG (NEG); CANNABINOIDS NEG (NEG); COCAINE NEG (NEG); METHADONE NEG (NEG); OPIATES NEG (NEG); PHENCYCLIDINE NEG (NEG)
[2019-07-20 17:44] LABS: AMPHETAMINE/METHAMPHETAMINE NEG (NEG)
--- NOTE | 2019-07-20 17:51 | ED.ADGEN ---
Past History Past Medical History: Other Additional Past Medical Histor: PE (CLAUDIA MCDONALD DO) Past Medical History: Anemia, Anxiety, Migraines (DUTCH RAE MD) Past Surgical History: (CLAUDIA MCDONALD DO) Smoking: Non-smoker Alcohol Use: None Drug Use: None (CLAUDIA MCDONLAD DO) Adult General Chief Complaint Chief Complaint Headache, vision loss, left upper extremity tingling (CLAUDIA MCDONALD DO) HPI HPI Patient is a 34-year-old -Togolese Togolese female who presents with headache's this morning upon waiting, vision changes described as bright lights with glare involving both eyes followed by loss of vision and light visual kerr. Patient also reports paresthesias/numbness in left arm. []Headache is currently located in the right parietal scalp region and is rated moderate and is described as throbbing and his sodium the shade with mild nausea. This is not the worst headache of the patient's life. Denies neck pain, tinnitus, focal extremity weakness. Patient denies history of migraine headaches. She was recently admitted to this facility and treated for pulmonary emboli and is currently on Eliquist. Patient states she is compliant with therapy. Denies chest pain palpitations, shortness of breath. No bloody stools, dark tarry stools. Patient did have her Mirena IUD removed since discharge from the hospital reports residual vaginal bleeding. No dizziness or lightheadedness. No other acute symptoms or complaints. (CLAUDIA MCDONALD DO) Review of Systems Review of Systems Review symptoms as per history of present illness. All other review symptoms are negative. All other systems were reviewed and found to be within normal limits, except as documented in this note. (CLAUDIA MCDONALD DO) Current Medications Current Medications Current Medications Medications (Trade) Dose Ordered Sig/Toro Start Time Stop Time Status Last Admin Dose Admin Diphenhydramine HCl (Benadryl) 25 mg 1X ONCE 07/20/19 16:45 07/20/19 16:46 DC 07/20/19 17:51 25 MG Info (Do NOT chart on this entry -- for MONITORING) 1 each PRN DAILY PRN 07/20/19 16:45 07/20/19 19:42 DC Iohexol (Omnipaque 350 Mg/ml) 100 ml 1X ONCE 07/20/19 16:45 07/20/19 16:46 DC 11/1/19 17:05 100 ML Lorazepam (Ativan) 2 mg 1X ONCE 07/20/19 18:45 07/20/19 18:46 DC 07/20/19 18:45 2 MG Methylprednisolone Sodium Succinate (SOLU-Medrol 125MG VIAL) 125 mg 1X ONCE 07/20/19 16:45 07/20/19 16:46 DC 07/20/19 17:21 125 MG Metoclopramide HCl (Reglan) 10 mg 1X ONCE 07/20/19 16:30 07/20/19 16:38 DC 07/20/19 16:30 10 MG Prochlorperazine Edisylate (Compazine) 10 mg 1X ONCE 07/20/19 16:45 07/20/19 16:46 DC 07/20/19 17:50 10 MG (DUTCH RAE MD) Allergies Allergies Allergies Coded Allergies Type Severity Reaction Last Updated Verified shrimp Allergy Unknown 07/06/19 Yes (DUTCH RAE MD) Physical Exam Physical Exam Constitutional: Well developed, well nourished, no acute distress, non-toxic appearance. [] HENT: Normocephalic, atraumatic, bilateral external ears normal, oropharynx moist, no oral exudates, nose normal. [] Eyes: PERRLA, EOMI, conjunctiva normal, no discharge. [] Neck: Normal range of motion, no tenderness, supple, no stridor. [] Cardiovascular:Heart rate regular rhythm, no murmur [] Lungs & Thorax: Bilateral breath sounds clear to auscultation [] Abdomen: Bowel sounds normal, soft, no tenderness, no masses, no pulsatile masses. [] Skin: Warm, dry, no erythema, no rash. [] Back: No tenderness, no CVA tenderness. [] Extremities: No tenderness, no cyanosis, no clubbing, ROM intact, no edema. [] Neurologic: Alert and oriented X 3, cranial nerves II through XII grossly intact, normal motor function, normal sensory function, no focal deficits noted. Stroke score of 0 per nursing stroke assessment.[] Psychologic: Affect normal, judgement normal, mood normal. [] (CLAUDIA MCDONALD DO) Current Patient Data Vital Signs Vital Signs Date Time Temp Pulse Resp B/P (MAP) Pulse Ox O2 Delivery O2 Flow Rate FiO2 07/20/19 19:38 98.0 82 20 135/90 (105) 98 Room Air (DUTCH RAE MD) Lab Results Laboratory Tests Test 07/20/19 16:30 07/20/19 17:24 White Blood Count 10.5 x10^3/uL (4.0-11.0) Red Blood Count 3.21 x10^6/uL (3.50-5.40) L Hemoglobin 10.2 g/dL (12.0-15.5) L Hematocrit 30.8 % (36.0-47.0) L Mean Corpuscular Volume 96 fL (79-100) Mean Corpuscular Hemoglobin 32 pg (25-35) Mean Corpuscular Hemoglobin Concent 33 g/dL (31-37) Red Cell Distribution Width 12.8 % (11.5-14.5) Platelet Count 366 x10^3/uL (140-400) Neutrophils (%) (Auto) 53 % (31-73) Lymphocytes (%) (Auto) 36 % (24-48) Monocytes (%) (Auto) 9 % (0-9) Eosinophils (%) (Auto) 1 % (0-3) Basophils (%) (Auto) 1 % (0-3) Neutrophils # (Auto) 5.6 x10^3uL (1.8-7.7) Lymphocytes # (Auto) 3.8 x10^3/uL (1.0-4.8) Monocytes # (Auto) 0.9 x10^3/uL (0.0-1.1) Eosinophils # (Auto) 0.1 x10^3/uL (0.0-0.7) Basophils # (Auto) 0.1 x10^3/uL (0.0-0.2) Erythrocyte Sedimentation Rate 31 (0-25) H Prothrombin Time 10.2 SEC (9.4-11.4) Prothrombin Time INR 1.0 (0.9-1.1) Activated Partial Thromboplast Time 28 SEC (23-33) Sodium Level 139 mmol/L (136-145) Potassium Level 3.6 mmol/L (3.5-5.1) Chloride Level 103 mmol/L (98-107) Carbon Dioxide Level 24 mmol/L (21-32) Anion Gap 12 (6-14) Blood Urea Nitrogen 6 mg/dL (7-20) L Creatinine 0.8 mg/dL (0.6-1.0) Estimated GFR (Cockcroft-Gault) 100.6 BUN/Creatinine Ratio 8 (6-20) Glucose Level 90 mg/dL (70-99) Calcium Level 9.1 mg/dL (8.5-10.1) Total Bilirubin 0.2 mg/dL (0.2-1.0) Aspartate Amino Transferase (AST) 14 U/L (15-37) L Alanine Aminotransferase (ALT) 17 U/L (14-59) Alkaline Phosphatase 67 U/L (46-116) C-Reactive Protein 1.6 mg/L (0-3.3) Total Protein 7.9 g/dL (6.4-8.2) Albumin 3.8 g/dL (3.4-5.0) Albumin/Globulin Ratio 0.9 (1.0-1.7) L Serum Test, Qualitative Negative (NEG) Urine Opiates Screen Neg (NEG) Urine Methadone Screen Neg (NEG) Urine Barbiturates Neg (NEG) Urine Phencyclidine Screen Neg (NEG) Urine Amphetamine/Methamphetamine Neg (NEG) Urine Benzodiazepines Screen Neg (NEG) Urine Cocaine Screen Neg (NEG) Urine Cannabinoids Screen Neg (NEG) Urine Ethyl Alcohol Neg (NEG) (DUTCH RAE MD) EKG EKG []: EKG: Reviewed, no arrhythmias. (CLAUDIA MCDONALD DO) Radiology/Procedures Radiology/Procedures [CT head/CTA head/neck. No acute findings per radiology report] (CLAUDIA MCDONALD DO) Course & Med Decision Making Course & Med Decision Making Pertinent Labs and Imaging studies reviewed. (See chart for details) [Patient with fitness assistant migraine-like headache with sensory deficits resolved prior to ED arrival.NIH SS 0 No focal or weakness. CTA/CT head neck negative. Patient states she is compliant with anticoagulation therapy. No arrhythmia on EKG. Will continue supportive treatment for headache with anticipated discharge from the ED. Patient will require hospital admission if neurologic symptoms return or new symptoms develop. She is otherwise instructed to follow-up with her PCP for for consideration of outpatient neurology referral. Patient verbalizes understanding agreement with discharge plan. (CLAUDIA MCDONALD DO) Course & Med Decision Making Pt. declines further work up at this time. States she feels much better. Requests discharge. States she is having a lot of anxiety... and worry. ( Social situation. ) Pt. declines spinal tap. 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 Will be with family tonight. Instructed to return if any concern. Will give one does of Ativan prior discharge. Must follow up. Review ED work up with primary. (DUTCH RAE MD) Final Impression Final Impression [1. Headache 2. Acute vision loss-resolved 3. Loss of sensation, left upper extremity-resolved] (CLAUDIA MCDONALD DO) Final Impression 1. Migraine Variant 2. Anxiety (DUTCH RAE MD) Dragon Disclaimer Dragon Disclaimer This electronic medical record was generated, in whole or in part, using a voice recognition dictation system. (CLAUDIA MCDONALD DO) Dragon Disclaimer This chart was dictated in whole or in part using Voice Recognition software in a busy, high-work load, and often noisy Emergency Department environment. It may contain unintended and wholly unrecognized errors or omissions. (DUTCH RAE MD) Dragon Disclaimer This chart was dictated in whole or in part using Voice Recognition software in a busy, high-work load, and often noisy Emergency Department environment. It may contain unintended and wholly unrecognized errors or omissions. (DUTCH RAE MD) CLAUDIA MCDONALD DO Jul 20, 2019 17:51 DUTCH RAE MD Jul 20, 2019 18:43
[2019-07-20] MEDS ORDERED: PROC10TA57 PO (17:55)
[2019-07-20 18:09] LABS: SEDIMENTATION RATE 31 (0-25)
[2019-07-20] MEDS ORDERED: LORazepam 1 MG TABLET PO ONE (18:45)
[2019-07-20 19:38] VITALS: BP 135/90
--- NOTE | 2019-07-24 03:46 | EKG ---
[address] [address] Test Date: 2019-07-20 Test Time: 17:00:59 Pat Name: CRYSTAL KIM Department: Room: Gender: F [employer]: : 1985 Requested By: CLAUDIA MCDONALD Order Number: [id number] Reading MD: Measurements Intervals Pandora Rate: 92 P: 57 OR: 150 QRS: 28 QRSD: 76 T: 12 QT: 346 QTc: 433 Interpretive Statements SINUS RHYTHM QRS(T) CONTOUR ABNORMALITY CONSIDER ANTEROLATERAL MYOCARDIAL DAMAGE POSSIBLY ABNORMAL ECG RI6.01 No previous ECG available for comparison
== END 2019-07-20 19:40 | disposition home or self-care (01) ==
LOC: ER 16:09
DX: G43.809 Other migraine, not intractable, without status migrainosus (principal); F41.9 Anxiety disorder, unspecified; Z86.2 Personal history of diseases of the blood and blood-forming organs and certain disorders involving the immune mechanism; Z98.890 Other specified postprocedural states; Z91.013 Allergy to seafood
CPT/HCPCS: 36415; 70450; 70496; 70498; 80053; 80307; 84703; 85025; 85610; 85651; 85730; 86140; 93005; 96374; 96375; 99285; J0780; J1200; J2930; J8597; Q9967

== ENCOUNTER 2019-10-11 18:16 | Emergency (ER) | payer OTHER ==
[~2019-10-11] VITALS: Ht 167.6 cm; Wt 100.0 kg
[~2019-10-11 18:16] MED LIST changes: +PROC10TA57 PO
--- NOTE | 2019-10-11 19:20 | PHYS DOC ---
Past History Past Medical History: Anxiety Additional Past Medical Histor: PE diagnosed in June Surgical History: Smoking: Non-smoker Alcohol Use: None Drug Use: None Adult General Chief Complaint Chief Complaint: BACK PAIN OR INJURY HPI HPI Patient is a 34 year old female who presents with complaint of left-sided flank pain. The patient states that her symptoms have been present off and on over the past 3 days. Currently is not experiencing pain but states that the pain will come on suddenly. It is unsure if it is affected by movement. States that she also has tightness towards her right shoulder. Had been planning to follow- up with her primary doctor to have this evaluated outpatient, however she states that she did have a sudden episode of shortness of breath earlier today. States that this did last for a few minutes before resolving on its own. States that currently she is not feeling short of breath but states that she has been feeling at times like she cannot get enough air. Was recently diagnosed with pulmonary embolism in June 2019. Currently on Ahlquist therapy. She states however week ago she had trouble continuing her medication due to problems with insurance paying for her. She states she missed at least 2 days the medication but has been taking it for the past 5 days without difficulty. She states that this caused her concern because of her history of blood clot. Notes that she does pain attention to her symptoms. Closely since her blood clot and this has caused her significant amount of stress and anxiety at times. Review of Systems Review of Systems Constitutional: Denies fever or chills [] Eyes: Denies change in visual acuity, redness, or eye pain [] HENT: Denies nasal congestion or sore throat [] Respiratory: Shortness of breath, currently resolved, no cough[] Cardiovascular: Denies chest pain or edema[] GI: Denies abdominal pain, nausea, vomiting, bloody stools or diarrhea [] : Denies dysuria or hematuria [] Musculoskeletal: Left flank pain, right shoulder pain[] Integument: Denies rash or skin lesions [] Neurologic: Denies headache, focal weakness or sensory changes [] All other systems were reviewed and found to be within normal limits, except as documented in this note. Allergies Allergies Allergies Coded Allergies Type Severity Reaction Last Updated Verified shrimp Allergy Unknown 07/06/19 Yes Physical Exam Physical Exam Constitutional: Well developed, well nourished, no acute distress, non-toxic appearance. [] HENT: Normocephalic, atraumatic, bilateral external ears normal, oropharynx moist, no oral exudates, nose normal. [] Eyes: PERRLA, EOMI, conjunctiva normal, no discharge. [] Neck: Normal range of motion, no tenderness, supple, no stridor. [] Cardiovascular:Heart rate regular rhythm, no murmur [] Lungs & Thorax: Bilateral breath sounds clear to auscultation [] Abdomen: Bowel sounds normal, soft, no tenderness, no masses, no pulsatile masses. [] Skin: Warm, dry, no erythema, no rash. [] Back: No tenderness, no CVA tenderness. [] Extremities: No tenderness, no cyanosis, no clubbing, ROM intact, no edema. [] Neurologic: Alert and oriented X 3, normal motor function, normal sensory function, no focal deficits noted. [] Current Patient Data Vital Signs Vital Signs Date Time Temp Pulse Resp B/P (MAP) Pulse Ox O2 Delivery O2 Flow Rate FiO2 10/11/19 18:48 98.7 86 18 139/72 (94) Room Air 96.0 Lab Results Laboratory Tests Test 10/11/19 19:04 POC Urine HCG, Qualitative hcg negative (Negative) EKG EKG Not performed[] Radiology/Procedures Radiology/Procedures Not performed[] Course & Med Decision Making Course & Med Decision Making Pertinent Labs and Imaging studies reviewed. (See chart for details) Patient's examination is benign and vital signs are stable at this time. Patient is experiencing no chest pain. I have low suspicion the patient is displaying any signs or symptoms of moderate to severe pulmonary embolism. Patient currently on Eliquis therapy. The patient's description of symptoms sounds suspicious for possible stress or anxiety related cause. Patient does acknowledge this and states that since her pulmonary embolism, she has become more concerned regarding any unusual signs or symptoms and this has caused her stress. Advised to continue on Ahlquist therapy as prescribed. Urine analysis did show evidence of urinary tract infection. We'll start patient on Macrobid twice daily for treatment. Advised follow-up with primary doctor in 3-5 days for reevaluation and return to the emergency department for any worsening symptoms. Patient was understanding and in agreement with treatment plan.[] Dragon Disclaimer Dragon Disclaimer This electronic medical record was generated, in whole or in part, using a voice recognition dictation system. Departure Departure: Impression: Primary Impression: Urinary tract infection Additional Impression: Shortness of breath Disposition: HOME, SELF-CARE Condition: IMPROVED Referrals: PCP,DANITA (PCP) Patient Instructions: Urinary Tract Infection Additional Instructions: Your examination and vital signs today are normal. It is believe that your shortness of breath symptoms could be related to stress regarding your health history. Please continue your Eliquis medication daily. Follow-up with your primary doctor in the next 3-5 days for reevaluation and return to the emergency department for any worsening symptoms. Scripts Nitrofurantoin Monohyd/M-Cryst (MACROBID 100 MG CAPSULE) 100 Mg Capsule 1 CAP PO BID for 7 Days, #14 CAP 0 Refills Prov: MAGGIE GREENBERG MD 10/11/19 Problem Qualifiers Primary Impression: Urinary tract infection Urinary tract infection type: site unspecified Hematuria presence: without hematuria Qualified Codes: N39.0 - Urinary tract infection, site not specified MAGGIE GREENBERG MD Oct 11, 2019 19:20
[2019-10-11 19:47] LABS: BILIRUBIN,URINE NEG (NEG); CLARITY,URINE CLEAR; COLOR,URINE STRAW; GLUCOSE,URINE NEG (NEG)
[2019-10-11 19:48] LABS: BACTERIA,URINE FEW /HPF (0-FEW); NITRITE,URINE NEG (NEG); SQUAMOUS EPITHELIAL CELL,UR OCC /LPF; UROBILINOGEN,URINE 0.2 mg/dL (0.2 mg/dL)
[2019-10-11] MEDS ORDERED: NITR100C62 PO (19:58)
[2019-10-11 20:04] VITALS: BP 147/70
== END 2019-10-11 20:09 | disposition home or self-care (01) ==
LOC: ER 18:16
DX: N39.0 Urinary tract infection, site not specified (principal); R06.02 Shortness of breath; F41.9 Anxiety disorder, unspecified; Z86.711 Personal history of pulmonary embolism
CPT/HCPCS: 81001; 81025; 87086; 87186; 99284

== ENCOUNTER 2020-02-07 12:14 | Emergency (ER) | payer OTHER ==
[~2020-02-07] VITALS: Ht 167.6 cm; Wt 93.0 kg
[~2020-02-07 12:14] MED LIST changes: +NITR100C62 PO
[2020-02-07 13:00] LABS: HEMATOCRIT 35.7 % (36.0-47.0); HEMOGLOBIN 11.8 g/dL (12.0-15.5); MEAN CORPUSCULAR HEMOGLOBIN 31 pg (25-35); MEAN CORPUSCULAR HGB CONC 33 g/dL (31-37); MEAN CORPUSCULAR VOLUME 92 fL (79-100); PLATELET COUNT 302 x10^3/uL (140-400); RED BLOOD COUNT 3.87 x10^6/uL (3.50-5.40); RED CELL DISTRIBUTION WIDTH 14.3 % (11.5-14.5); WHITE BLOOD COUNT 7.2 x10^3/uL (4.0-11.0)
[2020-02-07 13:01] LABS: BASO # 0.1 x10^3/uL (0.0-0.2); BASO % 1 % (0-3); EOS % 1 % (0-3); LYMPH % 28 % (24-48); MONO # 0.6 x10^3/uL (0.0-1.1); MONO % 8 % (0-9); NEUT # 4.5 x10^3uL (1.8-7.7); NEUT % 62 % (31-73)
--- NOTE | 2020-02-07 13:13 | RAD ---
TRANSVAGINAL History: Vaginal bleeding in Comparison: None. Findings: Multiple transvaginal sonographic images of pelvis are submitted. Uterus measured 10.6 x 6.4 x 7.8 cm. There is a single intrauterine gestational sac. Gestational sac morphology is within normal limits. There is visible yolk sac and pole. There is demonstrable cardiac activity 150 bpm. Placenta and anatomy are not well visualized at this age of the . [place]-rump length measurement of 1.4 cm corresponds with 7 weeks 5 days. Adjusted ultrasound age is 7 weeks 5 days with estimated delivery date of 09/20/2020. LMP age 7 weeks 0 days with estimated delivery date of 09/25/2020. Cervix measured 2.8 cm. There is minimal free fluid of the right adnexal region and cul-de-sac. Right ovary measured 2.5 x 1.7 x 1.6 cm. Left ovary measured 3.1 x 2.5 x 2.6 cm. There is a heterogeneous focus of echogenicity of the left ovary 1.5 x 1.1 x 1.2 cm, not associated with internal vascularity on color Doppler imaging. Impression: 1. There is a single viable uterine , adjusted ultrasound age 7 weeks 5 days with estimated delivery date 09/20/2020. 2. There is a complex focus of echogenicity of the left ovary, consideration of sequela of corpus luteal cyst or complex/hemorrhagic lesion, not associated with significant hypervascularity on color Doppler imaging. 3. There is minimal nonspecific free fluid in the right adnexal region and cul-de-sac. Electronically signed by: Brendan Mosley MD (02/07/2020 1:11 PM) [id number]
[2020-02-07 13:23] LABS: BILIRUBIN,URINE NEG (NEG); CLARITY,URINE CLEAR; COLOR,URINE YELLOW; GLUCOSE,URINE NEG (NEG); NITRITE,URINE POS (NEG); UROBILINOGEN,URINE 0.2 mg/dL (0.2 mg/dL)
[2020-02-07 13:24] LABS: BACTERIA,URINE MANY /HPF (0-FEW); SQUAMOUS EPITHELIAL CELL,UR MOD /LPF
--- NOTE | 2020-02-07 13:52 | PHYS DOC ---
Past History Past Medical History: Other Additional Past Medical Histor: PE Past Surgical History: Smoking: Non-smoker Alcohol Use: None Drug Use: None General Adult EDM: Chief Complaint: VAGINAL BLEEDING HPI: HPI: 34-year-old female [id number] presents with report of vaginal bleeding that started at 1130. Patient reports she is approximately 7 weeks . Reports some abdominal/pelvic cramping. Denies nausea or vomiting. Denies fever or chills. Denies vaginal discharge. Denies trauma. Denies concern for STDs. 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 Current Medications: Current Meds: Current Medications Medications (Trade) Dose Ordered Sig/Toro Start Time Stop Time Status Last Admin Dose Admin Cephalexin HCl (Keflex) 500 mg 1X ONCE 02/07/20 14:00 02/07/20 14:01 UNV Allergies: Allergies: Allergies Coded Allergies Type Severity Reaction Last Updated Verified shrimp Allergy Unknown 07/06/19 Yes Physical Exam: PE: Constitutional: Well developed, well nourished, no acute distress, non-toxic appearance HENT: Normocephalic, atraumatic Eyes: Conjunctiva normal, no discharge Neck: Normal range of motion, no tenderness, supple Cardiovascular: Heart rate normal, regular rhythm Lungs & Thorax: Bilateral breath sounds clear to auscultation, no wheezing Abdomen: Soft, no tenderness, no guarding/rebound tenderness/distention 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, 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, vaginal vault with scant brown discharge, no CMT, os closed, no adnexal tenderness Skin: Warm, dry, no erythema, no rash Back: No tenderness, no CVA tenderness Extremities: No tenderness, ROM intact, no edema Neurologic: Alert and oriented X 3, no focal deficits noted Psychologic: Affect normal, judgment normal Current Patient Data: Labs: Laboratory Tests Test 02/07/20 12:25 02/07/20 12:53 White Blood Count 7.2 x10^3/uL (4.0-11.0) Red Blood Count 3.87 x10^6/uL (3.50-5.40) Hemoglobin 11.8 g/dL (12.0-15.5) L Hematocrit 35.7 % (36.0-47.0) L Mean Corpuscular Volume 92 fL (79-100) Mean Corpuscular Hemoglobin 31 pg (25-35) Mean Corpuscular Hemoglobin Concent 33 g/dL (31-37) Red Cell Distribution Width 14.3 % (11.5-14.5) Platelet Count 302 x10^3/uL (140-400) Neutrophils (%) (Auto) 62 % (31-73) Lymphocytes (%) (Auto) 28 % (24-48) Monocytes (%) (Auto) 8 % (0-9) Eosinophils (%) (Auto) 1 % (0-3) Basophils (%) (Auto) 1 % (0-3) Neutrophils # (Auto) 4.5 x10^3uL (1.8-7.7) Lymphocytes # (Auto) 2.0 x10^3/uL (1.0-4.8) Monocytes # (Auto) 0.6 x10^3/uL (0.0-1.1) Eosinophils # (Auto) 0.0 x10^3/uL (0.0-0.7) Basophils # (Auto) 0.1 x10^3/uL (0.0-0.2) Urine Collection Type Unknown Urine Color Yellow Urine Clarity Clear Urine pH 7.0 Urine Specific [place] 1.020 Urine Protein Neg (NEG-TRACE) Urine Glucose (UA) Neg mg/dL (NEG) Urine Ketones (Stick) Neg mg/dL (NEG) Urine Blood Mod (NEG) Urine Nitrite Pos (NEG) Urine Bilirubin Neg (NEG) Urine Urobilinogen Dipstick 0.2 mg/dL (0.2 mg/dL) Urine Leukocyte Esterase Neg (NEG) Urine RBC 1-2 /HPF (0-2) Urine WBC 5-10 /HPF (0-4) Urine Squamous Epithelial Cells Mod /LPF Urine Bacteria Many /HPF (0-FEW) Urine Mucus Mod /LPF Vital Signs: Vital Signs Date Time Temp Pulse Resp B/P (MAP) Pulse Ox O2 Delivery O2 Flow Rate FiO2 02/07/20 12:24 98.2 117 18 152/97 (115) 100 Room Air EKG: EKG: [] Radiology/Procedures: Radiology/Procedures: PROCEDURE: TRANSVAGINAL TRANSVAGINAL History: Vaginal bleeding in Comparison: None. Findings: Multiple transvaginal sonographic images of pelvis are submitted. Uterus measured 10.6 x 6.4 x 7.8 cm. There is a single intrauterine gestational sac. Gestational sac morphology is within normal limits. There is visible yolk sac and pole. There is demonstrable cardiac activity 150 bpm. Placenta and anatomy are not well visualized at this age of the . [place]-rump length measurement of 1.4 cm corresponds with 7 weeks 5 days. Adjusted ultrasound age is 7 weeks 5 days with estimated delivery date of 09/20/2020. LMP age 7 weeks 0 days with estimated delivery date of 09/25/2020. Cervix measured 2.8 cm. There is minimal free fluid of the right adnexal region and cul-de-sac. Right ovary measured 2.5 x 1.7 x 1.6 cm. Left ovary measured 3.1 x 2.5 x 2.6 cm. There is a heterogeneous focus of echogenicity of the left ovary 1.5 x 1.1 x 1.2 cm, not associated with internal vascularity on color Doppler imaging. Impression: 1. There is a single viable uterine , adjusted ultrasound age 7 weeks 5 days with estimated delivery date 09/20/2020. 2. There is a complex focus of echogenicity of the left ovary, consideration of sequela of corpus luteal cyst or complex/hemorrhagic lesion, not associated with significant hypervascularity on color Doppler imaging. 3. There is minimal nonspecific free fluid in the right adnexal region and cul-de-sac. Electronically signed by: Brendan Mosley MD (02/07/2020 1:11 PM) [id number] Course & Med Decision Making: Course & Med Decision Making Pertinent Labs and Imaging studies reviewed. (See chart for details) Patient presents with vaginal bleeding and . Reports she is approximately 7 weeks gestation. Vital signs stable. Labs obtained and posted to chart. UA with signs of infection. Empiric antibiotic therapy provided. Pelvic exam performed. Chlamydia/gonorrhea pending. Patient declined empiric antibiotic therapy. Wet mount positive for BV. OB ultrasound obtained with single IUP with good heart tones. BHCG appropriate. RH positive. Patient stable for discharge with outpatient follow-up with PCP/OB. Discussed findings and plan with patient, who acknowledges understanding and agreement. Samuel Disclaimer: Samuel Disclaimer: This electronic medical record was generated, in whole or in part, using a voice recognition dictation system. Departure Departure: Impression: Primary Impression: Threatened miscarriage Additional Impressions: Urinary tract infection Qualified Codes: N30.01 - Acute cystitis with hematuria Bacterial vaginosis in Disposition: HOME/RESIDENCE PRIOR TO ADM Condition: STABLE Referrals: PCP,NO (PCP) Patient Instructions: Bacterial Vaginosis, [id number], Threatened Miscarriage, [id number], Urinary Tract Infection, [id number] Scripts Metronidazole (FLAGYL) 500 Mg Tablet 1 TAB PO BID for Vaginitis, #14 TAB Prov: YASMEEN GARCIA DO 02/07/20 Cephalexin (KEFLEX) 500 Mg Capsule 1 CAP PO TID for UTI for 7 Days, #21 CAP 0 Refills Prov: YASMEEN GARCIA DO 02/07/20 YASMEEN GARCIA DO February 07, 2020 13:52
[2020-02-07] MEDS ORDERED: CEPH-264 PO (13:56)
[2020-02-07] MEDS ORDERED: CEPHALEXIN 250 MG CAPSULE PO ONE (14:00)
[2020-02-07] MEDS ORDERED: METR500T PO (14:26)
[2020-02-07 14:36] VITALS: BP 136/81
[2020-02-08 18:07] LABS: CHLAMYDIA PROBE Negative (Negative)
== END 2020-02-07 14:36 | disposition home or self-care (01) ==
LOC: ER 12:14
DX: O20.0 Threatened abortion (principal); O23.41 Unspecified infection of urinary tract in pregnancy, first trimester; O23.591 Infection of other part of genital tract in pregnancy, first trimester; B96.89 Other specified bacterial agents as the cause of diseases classified elsewhere; Z3A.01 Less than 8 weeks gestation of pregnancy; Z91.013 Allergy to seafood
CPT/HCPCS: 36415; 76817; 81001; 84702; 85025; 86900; 86901; 87086; 87491; 87591; 99284; Q0111

== ENCOUNTER 2021-06-23 00:04 | Emergency (ER) | payer OTHER ==
[~2021-06-23] VITALS: Ht 165.1 cm; Wt 100.2 kg
[~2021-06-23 00:04] MED LIST changes: +CEPH-264 PO; +METR500T PO
--- NOTE | 2021-06-23 00:47 | PHYS DOC ---
Past History Past Medical History: Other Additional Past Medical Histor: PE Past Surgical History: Smoking: Non-smoker Alcohol Use: None Drug Use: None Adult General Chief Complaint Chief Complaint: CHEST PAIN [facility] HPI Patient is a 36 year old female who presents with chest and neck pain. Patient describes chest pain located in the midepigastric area with slight sharp tightness and it spontaneously started while sitting at home. The pain is nearly subsided now. In addition she thought she had a transient pain to the left lower chest area which is also resolved now. In addition have been having some neck and back pain for the last week. She denies any cough, shortness of breath, fever, abdominal pain, lower back pain. She does have history of previous pulmonary embolism 2 years ago. She denies any leg pain. She has no other complaints. Review of Systems Review of Systems Constitutional: Denies fever or chills Eyes: Denies change in visual acuity, redness, or eye pain HENT: Denies nasal congestion or sore throat Respiratory: Denies cough or shortness of breath Cardiovascular: No additional information not addressed in HPI GI: Denies abdominal pain, nausea, vomiting, bloody stools or diarrhea : Denies dysuria or hematuria Musculoskeletal: Denies back pain or joint pain Integument: Denies rash or skin lesions Neurologic: Denies headache, focal weakness or sensory changes Endocrine: Denies polyuria or polydipsia All other systems were reviewed and found to be within normal limits, except as documented in this note. Allergies Allergies Allergies Coded Allergies Type Severity Reaction Last Updated Verified shrimp Allergy Unknown 07/06/19 Yes Physical Exam Physical Exam Constitutional: Well developed, well nourished, no acute distress, non-toxic appearance. HENT: Normocephalic, atraumatic, bilateral external ears normal, oropharynx moist, no oral exudates, nose normal. Eyes: PERRLA, EOMI, conjunctiva normal, no discharge. Neck: Normal range of motion, no tenderness, supple, no stridor. Cardiovascular:Heart rate regular rhythm, no murmur Lungs & Thorax: Bilateral breath sounds clear to auscultation Abdomen: Bowel sounds normal, soft, no tenderness, no masses, no pulsatile masses. Skin: Warm, dry, no erythema, no rash. Back: No tenderness, no CVA tenderness. Extremities: No tenderness, no cyanosis, no clubbing, ROM intact, no edema. Neurologic: Alert and oriented X 3, normal motor function, normal sensory function, no focal deficits noted. Psychologic: Affect normal, judgement normal, mood normal. Current Patient Data Vital Signs Vital Signs Date Time Temp Pulse Resp B/P (MAP) Pulse Ox O2 Delivery O2 Flow Rate FiO2 06/23/21 00:22 97.4 85 18 134/83 (100) 99 Room Air Lab Results Laboratory Tests Test 06/23/21 01:35 06/23/21 01:54 White Blood Count 9.6 x10^3/uL Red Blood Count 3.80 x10^6/uL Hemoglobin 11.1 g/dL Hematocrit 33.9 % Mean Corpuscular Volume 89 fL Mean Corpuscular Hemoglobin 29 pg Mean Corpuscular Hemoglobin Concent 33 g/dL Red Cell Distribution Width 15.7 % Platelet Count 329 x10^3/uL Neutrophils (%) (Auto) 56 % Lymphocytes (%) (Auto) 32 % Monocytes (%) (Auto) 8 % Eosinophils (%) (Auto) 3 % Basophils (%) (Auto) 1 % Neutrophils # (Auto) 5.4 x10^3uL Lymphocytes # (Auto) 3.1 x10^3/uL Monocytes # (Auto) 0.8 x10^3/uL Eosinophils # (Auto) 0.2 x10^3/uL Basophils # (Auto) 0.1 x10^3/uL D-Dimer ([place]) 0.38 mg/L Sodium Level 137 mmol/L Potassium Level 3.6 mmol/L Chloride Level 103 mmol/L Carbon Dioxide Level 28 mmol/L Anion Gap 6 Blood Urea Nitrogen 6 mg/dL Creatinine 0.7 mg/dL Estimated GFR (Cockcroft-Gault) 115.9 BUN/Creatinine Ratio 9 Glucose Level 103 mg/dL Calcium Level 9.2 mg/dL Total Bilirubin 0.2 mg/dL Aspartate Amino Transf (AST/SGOT) 13 U/L Alanine Aminotransferase (ALT/SGPT) 26 U/L Alkaline Phosphatase 74 U/L Troponin I Quantitative < 0.017 ng/mL Total Protein 8.0 g/dL Albumin 3.8 g/dL Albumin/Globulin Ratio 0.9 Bedside Urine HCG, Qualitative hcg negative EKG EKG Patient had twelve-lead EKG done which shows normal sinus rhythm at 80 bpm without any significant arrhythmias or ischemia per my interpretation. Radiology/Procedures Radiology/Procedures Chest x-ray per radiology interpretation revealed no acute abnormalities. [] Heart Score C/O Chest Pain: Yes HEART Score for Chest Pain: HEART Score for Chest Pain Response (Comments) Value History Slighlty/Non-Suspicious 0 ECG Normal 0 Age < 45 0 Risk Factors No Risk Factors 0 Troponin < Normal Limit 0 Total 0 Course & Med Decision Making Course & Med Decision Making Pertinent Labs and Imaging studies reviewed. (See chart for details) Patient had presented with epigastric chest pain with onset just tonight. She has previous history of pulmonary embolism. An EKG was obtained which was completely normal. Her pulse ox was 99%. She was afebrile. Chest x-ray showed no acute abnormalities. Laboratory studies including D-dimer, CBC and CMP as well as troponin were within normal limit. I have advised patient of her normal work-up in the emergency department but if she has recurrent pain, she should follow-up with her physician or come back to emergency department. She understands and request to be discharged home. Dragon Disclaimer Dragon Disclaimer This electronic medical record was generated, in whole or in part, using a voice recognition dictation system. Departure Departure: Impression: Primary Impression: Nonspecific chest pain Disposition: HOME / SELF CARE / HOMELESS Condition: IMPROVED Referrals: PCP,NO (PCP) Please see your doctor in the next 3 to 5 days for follow-up. If you develop recurrent chest pain, shortness of breath, fever or do not feel well, come back to emergency department. Patient Instructions: Chest Pain (Nonspecific) SWAPNIL ARCHULETA MD Jun 23, 2021 00:47
--- NOTE | 2021-06-23 00:49 | EKG ---
[address] [address] Test Date: 2021-06-23 Test Time: 00:12:56 Pat Name: CRYSTAL KIM Department: Room: Gender: F Respiratory Clinician: : [id number] Requested By: SWAPNIL ARCHULETA Order Number: [id number] [place] MD: Jonathan Taylor Measurements Intervals [place] Rate: 80 P: 40 SC: 174 QRS: 46 QRSD: 76 T: 26 QT: 350 QTc: 407 Interpretive Statements SINUS RHYTHM Electronically Signed On 06-23-2021 13:30:27 CDT by Jonathan Taylor
[2021-06-23 01:55] LABS: BASO # 0.1 x10^3/uL (0.0-0.2); BASO % 1 % (0-3); EOS # 0.2 x10^3/uL (0.0-0.7); EOS % 3 % (0-3); HEMATOCRIT 33.9 % (36.0-47.0); HEMOGLOBIN 11.1 g/dL (12.0-15.5); LYMPH # 3.1 x10^3/uL (1.0-4.8); LYMPH % 32 % (24-48); MEAN CORPUSCULAR HEMOGLOBIN 29 pg (25-35); MEAN CORPUSCULAR HGB CONC 33 g/dL (31-37); MEAN CORPUSCULAR VOLUME 89 fL (79-100); MONO # 0.8 x10^3/uL (0.0-1.1); MONO % 8 % (0-9); NEUT # 5.4 x10^3uL (1.8-7.7); NEUT % 56 % (31-73); PLATELET COUNT 329 x10^3/uL (140-400); RED CELL DISTRIBUTION WIDTH 15.7 % (11.5-14.5); WHITE BLOOD COUNT 9.6 x10^3/uL (4.0-11.0)
[2021-06-23 02:03] LABS: CALCIUM 9.2 mg/dL (8.5-10.1); CREATININE 0.7 mg/dL (0.6-1.0); GFR 115.9; POTASSIUM 3.6 mmol/L (3.5-5.1)
--- NOTE | 2021-06-23 02:07 | RAD ---
Two-view chest dated 06/23/2021 2:04 AM Comparison: 01/09/2017 CLINICAL INDICATION: Chest pain FINDINGS: PA and lateral views obtained. Heart and mediastinal contours within normal limits. Lungs are clear. No consolidation or pleural effusion. No pneumothorax. IMPRESSION: No acute radiographic abnormality. Electronically signed by: Ricardo Gil MD (06/23/2021 2:05 AM) LETICIA
[2021-06-23 02:09] LABS: ALBUMIN 3.8 g/dL (3.4-5.0); ALBUMIN/GLOBULIN RATIO 0.9 (1.0-1.7); TOTAL BILIRUBIN 0.2 mg/dL (0.2-1.0)
[2021-06-23 03:00] VITALS: BP 30/78
== END 2021-06-23 03:55 | disposition home or self-care (01) ==
LOC: ER 00:04
DX: R07.89 Other chest pain (principal); M54.2 Cervicalgia; R10.13 Epigastric pain; Z86.711 Personal history of pulmonary embolism; Z91.013 Allergy to seafood
CPT/HCPCS: 36415; 71046; 80053; 81025; 84484; 85025; 85379; 93005; 99285-25

== ENCOUNTER 2022-01-26 20:56 | Emergency (ER) | payer OTHER ==
[~2022-01-26] VITALS: Ht 165.1 cm; Wt 100.2 kg
--- NOTE | 2022-01-26 21:54 | PHYS DOC ---
Past History Past Medical History: Other Additional Past Medical Histor: PE Past Surgical History: , Tubal ligation Smoking: Non-smoker Alcohol Use: Rarely Drug Use: None General Adult EDM: Chief Complaint: CHEST PAIN HPI: HPI: '"..I ve been having some chest pain for a while now... just seems worse the last couple weeks.... it been kar constant..." Patient is a 36 year old female who presents with above hx and complaints of chest discomfort for two weeks constant. Patient rates pain,as 2-3 out of 10 the past 2 weeks.. It is in central chest and does radiate to between shoulder blades. Deep breaths at times seems to make it worse. Patient has had previous admission evaluation for chest pain of similar presentation. Patient denies any trauma. Patient denies any recent travel. Patient denies any changes in meds. Does have a significant history of PE in 2019 and was on Eliquis for 6 months. Patient does have past history of hypertension. Patient has been compliant with her hypertensive meds but it was noted that she did have elevated blood pressure on arrival. Patient has significant family history with a sister that had 2 MIs at age 34 and uncle had an AZ at age 17. Patient not normally following at a primary since off Eliquis. Patient does have some history of hypertension but not on a current meds. Patient does have a history of anemia. No recent trauma. Nothing seems to make the pain worse or better. Patient describes discomfort or pain as dull and rates it 3 out of 10 currently. Review of Systems: Review of Systems: Constitutional: Denies fever or chills Eyes: Denies change in visual acuity HENT: Denies nasal congestion or sore throat Respiratory: Denies cough or shortness of breath Cardiovascular: Complains of discomfort in chest pain GI: Denies abdominal pain, nausea, vomiting, bloody stools or diarrhea : Denies dysuria Musculoskeletal: Denies back pain or joint pain Integument: Denies rash Neurologic: Denies headache, focal weakness or sensory changes Endocrine: Denies polyuria or polydipsia Lymphatic: Denies swollen glands Psychiatric: Denies depression or anxiety Family History: Family History: Family history of MIs sister and uncle Current Medications: Current Meds: See nursing for home meds Allergies: Allergies: Allergies Coded Allergies Type Severity Reaction Last Updated Verified iodine Allergy Severe 01/26/22 Yes shrimp Allergy Severe 01/26/22 Yes Physical Exam: PE: Constitutional: Mild to moderate distress, non-toxic appearance. [] HENT: Normocephalic, atraumatic, bilateral external ears normal, oropharynx moist, no oral exudates, nose normal. [] Eyes: PERRLA, EOMI, conjunctiva normal, no discharge. [] Neck: Normal range of motion, no tenderness, supple, no stridor. [] Cardiovascular:Heart rate regular rhythm, no murmur [] Lungs & Thorax: Bilateral breath sounds equal apex auscultation [] Abdomen: Bowel sounds normal, soft, no tenderness, no masses, no pulsatile masses. Obese. Old scar. Skin: Warm, dry, no erythema, no rash. [] Back: No tenderness, no CVA tenderness. [] Extremities: No tenderness, no cyanosis, no clubbing, ROM intact, no edema. [] No cording appreciated Neurologic: Alert and oriented X 3, normal motor function, normal sensory functi on, no focal deficits noted. [] Psychologic: Affect anxious, judgement normal, mood normal. [] Current Patient Data: Vital Signs: Vital Signs Date Time Temp Pulse Resp B/P (MAP) Pulse Ox O2 Delivery O2 Flow Rate FiO2 01/26/22 21:24 98.3 81 20 152/106 (121) 98 Room Air EKG: EKG: My interpretation EKG shows a sinus rhythm with right axis changes and contours in the lateral leads. No findings of acute STEMI of contralateral changes. Time of EKG is 2137 hrs. [] Monitor patient has second EKG shows sinus rhythm at 72 bpm. No acute morpho logy changes. No acute significant interval change from prior EKG. Time of this EKG is 254 hours Radiology/Procedures: Radiology/Procedures: [][address] [address] IMAGING REPORT Signed PATIENT: CRYSTAL KIMACCOUNT: [id number] : 1985 LOCATION: ER AGE: 36 SEX: F EXAM STATUS: REG ER ORD. PHYSICIAN: DUTCH RAE MD REASON: chest pain PROCEDURE: PORTABLE CHEST 1V XR CHEST 1V Clinical Indication: Reason: chest pain / Spl. Instructions: / History: Comparison: Two-view chest June 23, 2021. Findings: The cardiomediastinal silhouette is normal. Lungs are clear. There is no pneumothorax. No pleural effusion is appreciated. No acute bone abnormality. There is mild S-shaped thoracolumbar scoliosis. IMPRESSION: No acute cardiopulmonary process. Electronically signed by: Willard Ramesh MD (01/27/2022 2:46 AM) [facility] DICTATED AND SIGNED BY: WILLARD RAMESH MD DATE: 01/27/22244 CC: DUTCH RAE MD; PCP,NO ~ Heart Score: C/O Chest Pain: Yes HEART Score for Chest Pain: HEART Score for Chest Pain Response (Comments) Value History Slighlty/Non-Suspicious 0 ECG Nonspecific Repolarizatio 1 Age < 45 0 Risk Factors 1 or 2 Risk Factors 1 Troponin < Normal Limit 0 Total 2 Risk Factors: Risk Factors: DM, Current or recent (<one month) smoker, HTN, HLP, family history of CAD, obesity. Risk Scores: Score 0 - 3: 2.5% MACE over next 6 weeks - Discharge Home Score 4 - 6: 20.3% MACE over next 6 weeks - Admit for Clinical Observation Score 7 - 10: 72.7% MACE over next 6 weeks - Early Invasive Strategies Course & Med Decision Making: Course & Med Decision Making Pertinent Labs and Imaging studies reviewed. (See chart for details) Patient take a daily aspirin. Follow-up primary care. Get outpatient stress testing. Patient return if any concerns. Document home blood pressures in the morning And night show this record primary care. Return if any concerns. Impression: 1. Chest wall pain 2. History of pulmonary embolism in 2019 3. Anemia Hgb 10.1 4. Hypertension [] Dragon Disclaimer: Dragon Disclaimer: This electronic medical record was generated, in whole or in part, using a voice recognition dictation system. Departure Departure: Referrals: PCP,DANITA (PCP) Samuel Disclaimer This chart was dictated in whole or in part using Voice Recognition software in a busy, high-work load, and often noisy Emergency Department environment. It may contain unintended and wholly unrecognized errors or omissions. Dragon Disclaimer This chart was dictated in whole or in part using Voice Recognition software in a busy, high-work load, and often noisy Emergency Department environment. It may contain unintended and wholly unrecognized errors or omissions. DUTCH RAE MD January 26, 2022 21:54
[2022-01-26] MEDS ORDERED: ASPIRIN CHEWABLE 81 MG TABLET. PO ONE (22:30)
[2022-01-26] MEDS ORDERED: IV RINGERS SOLUTION,LACTATED 1,000 ML IV SCH (22:30)
[2022-01-26 22:32] LABS: BASO # 0.2 x10^3/uL (0.0-0.2); BASO % 2 % (0-3); EOS # 0.2 x10^3/uL (0.0-0.7); EOS % 2 % (0-3); HEMOGLOBIN 10.1 g/dL (12.0-15.5); LYMPH # 3.6 x10^3/uL (1.0-4.8); LYMPH % 37 % (24-48); MEAN CORPUSCULAR HEMOGLOBIN 29 pg (25-35); MEAN CORPUSCULAR HGB CONC 33 g/dL (31-37); MEAN CORPUSCULAR VOLUME 90 fL (79-100); MONO # 0.8 x10^3/uL (0.0-1.1); MONO % 8 % (0-9); NEUT # 5.1 x10^3uL (1.8-7.7); NEUT % 52 % (31-73); PLATELET COUNT 339 x10^3/uL (140-400); RED BLOOD COUNT 3.46 x10^6/uL (3.50-5.40); RED CELL DISTRIBUTION WIDTH 15.3 % (11.5-14.5); WHITE BLOOD COUNT 9.8 x10^3/uL (4.0-11.0)
[2022-01-26 22:42] LABS: ANION GAP 7 (6-14); BLOOD UREA NITROGEN 6 mg/dL (7-20); CALCIUM 9.3 mg/dL (8.5-10.1); CARBON DIOXIDE 27 mmol/L (21-32); CHLORIDE 102 mmol/L (98-107); CREATININE 0.8 mg/dL (0.6-1.0); GFR 99.4; GLUCOSE 96 mg/dL (70-99); POTASSIUM 4.2 mmol/L (3.5-5.1); SODIUM 136 mmol/L (136-145)
[2022-01-26 22:55] LABS: ALBUMIN 3.5 g/dL (3.4-5.0); ALK PHOS 69 U/L (46-116); ALT (SGPT) 21 U/L (14-59); AST (SGOT) 10 U/L (15-37); LIPASE 111 U/L (73-393); TOTAL BILIRUBIN 0.2 mg/dL (0.2-1.0)
[2022-01-26 22:57] LABS: DIRECT BILIRUBIN < 0.1 mg/dL (0.0-0.2)
[2022-01-27 00:32] LABS: BARBITURATES NEG (NEG); BENZODIAZEPINES NEG (NEG); CANNABINOIDS NEG (NEG); COCAINE NEG (NEG); METHADONE NEG (NEG); OPIATES NEG (NEG); PHENCYCLIDINE NEG (NEG)
[2022-01-27 00:35] LABS: BACTERIA,URINE 0 /HPF (0-FEW); CLARITY,URINE CLEAR; COLOR,URINE YELLOW; GLUCOSE,URINE NEG (NEG); NITRITE,URINE NEG (NEG); RBC,URINE 0 /HPF (0-2); SQUAMOUS EPITHELIAL CELL,UR FEW /LPF; UROBILINOGEN,URINE 0.2 mg/dL (0.2 mg/dL); WBC,URINE 0 /HPF (0-4)
[2022-01-27 00:36] LABS: AMPHETAMINE/METHAMPHETAMINE NEG (NEG)
--- NOTE | 2022-01-27 02:48 | RAD ---
XR CHEST 1V Clinical Indication: Reason: chest pain / Spl. Instructions: / History: Comparison: Two-view chest June 23, 2021. Findings: The cardiomediastinal silhouette is normal. Lungs are clear. There is no pneumothorax. No pleural eff usion is appreciated. No acute bone abnormality. There is mild S-shaped thoracolumbar scoliosis. IMPRESSION: No acute cardiopulmonary process. Electronically signed by: Willard Givens MD (01/27/2022 2:46 AM) [facility]ENTERJul[facility]
[2022-01-27 03:10] VITALS: BP 138/77
--- NOTE | 2022-01-27 06:26 | EKG ---
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
--- NOTE | 2022-01-27 06:29 | EKG ---
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
== END 2022-01-27 03:23 | disposition home or self-care (01) ==
LOC: ER 20:56
DX: R07.89 Other chest pain (principal); D64.9 Anemia, unspecified; I10 Essential (primary) hypertension; Z86.711 Personal history of pulmonary embolism; Z88.8 Allergy status to other drugs, medicaments and biological substances; Z91.013 Allergy to seafood
CPT/HCPCS: 36415; 71045; 80048; 80076; 80307; 81001; 81025; 82550; 83690; 83735; 83880; 84443; 84484; 85025; 85379; 85610; 85730; 93005; 96360; 96361; 99285; J7120